=== PATIENT | male | born 1960 | race Caucasian/White ===

== ENCOUNTER → 2021-07-24 | Outpatient (CLI) | payer BC, OTHER | LOC: M SLEEP HO 09:43 | PROVIDERS: ATTEND Internal Medicine Cardiovascular Disease | DX: R06.83 Snoring (principal); R94.09 Abnormal results of other function studies of central nervous system ==

== ENCOUNTER 2023-06-12 09:59 | Day surgery (SDC) | payer BC ==
[~2023-06-12] VITALS: Ht 172.7 cm; Wt 92.4 kg
[~2023-06-12 09:59] MED LIST: ALLO100T PO; CHLO25TA PO; EPLE25TA PO; HYDR25TA87 PO; OLME20TA50 PO; OMEP1CAP73 PO
[2023-06-12] MEDS: NS 1,000 ML IV ONE (10:21)
[2023-06-12] MEDS ORDERED: propofoL 200 MG/20 ML VIAL As Ordered ONE (11:13)
[2023-06-12] MEDS ORDERED: LIDOCAINE 2% 100MG/5ML SDV (FOR ANES.) As Ordered ONE (11:13)
[2023-06-12 13:16] VITALS: TEMP 97.7
[2023-06-12 13:30] VITALS: BP 127/74; O2SAT 95
== END 2023-06-12 13:39 | disposition home or self-care (01) ==
LOC: M OPP 09:59
PROVIDERS: ATTEND Surgery
DX: Z12.11 Encounter for screening for malignant neoplasm of colon (principal); D12.6 Benign neoplasm of colon, unspecified; K57.30 Diverticulosis of large intestine without perforation or abscess without bleeding; Z79.83 Long term (current) use of bisphosphonates; Z79.84 Long term (current) use of oral hypoglycemic drugs; Z79.899 Other long term (current) drug therapy; Z88.3 Allergy status to other anti-infective agents; Z88.8 Allergy status to other drugs, medicaments and biological substances

== ENCOUNTER → 2025-01-23 | Outpatient (CLI) | payer BC ==
[~2025-01-23] MED LIST changes: -EPLE25TA PO; +EPLE25TA15 PO
== END ==
LOC: M CARPUL 14:15
PROVIDERS: ATTEND Physician Assistant
DX: I77.810 Thoracic aortic ectasia (principal)